=== PATIENT | male | born 1985 | race Caucasian/White ===

== ENCOUNTER 2020-09-28 04:42 | Emergency (ER) | payer SELFPAY ==
[2020-09-28 04:49] VITALS: BP 130/76; PULSE 116; O2SAT 100; BMI 25.8
--- NOTE | 2020-09-28 04:54 | ED.ALCOHOL ---
HPI - Alcohol General Stated Complaint: ETOH INTOXICATION,CALM & COOPERATIVE @ THIS TIME Time Seen by Provider: 09/28/20 04:53 Source: patient Mode of arrival: EMS History of Present Illness HPI narrative: 35-year-old male who is brought in by EMS after he was found sleeping in his car without driving and noted to be intoxicated. He was brought in for further evaluation and on arrival is denying any acute complaints other than requesting to leave. Related Data Allergies Allergy/AdvReac Type Severity Reaction Status Date / Time No Known Allergies Allergy Verified 09/28/20 04:49 Review of Systems Review of Systems: Pertinent positives and negatives as stated in HPI 10 point review of systems is otherwise negative. PMFSH Past Medical History Source: nursing notes reviewed Social History Social History Advance Directives: No Advance Directives Information Provided: No Physical Exam Vital Signs: Vital Signs: VITAL SIGNS: Patient refused GENERAL: Well developed, well nourished, in no acute distress. HEAD: Normocephalic/atraumatic LUNGS: No tachypnea or obvious respiratory distress CARDIOVASCULAR: Regular rate and rhythm ABDOMEN: Soft, non-tender, non-distended with bowel sounds. NEUROLOGIC: Alert and oriented x 3. Stable gait Course Course Course Narrative: 35-year-old male with history and clinical presentation consistent with falling asleep in personal car while intoxicated and is now refusing vital signs and requesting to be discharged. Patient was able to call for a safe ride home and ambulated out of the emergency department without any noted gait instability and received a safe ride home from parents. Discharge Plan Discharge Clinical Impression: Alcohol intoxication Patient Disposition: Home, Self-Care Instructions: Alcohol Intoxication (ED) Additional Instructions: Return to the ER for acute worsening of symptoms. Referrals: Physician,Unknown [Primary Care Provider] - 2 days
== END 2020-09-28 05:03 | disposition home or self-care (01) ==
PROVIDERS: Emergency Provider Student in an Organized Health Care Education/Training Program
DX: F10.920 Alcohol use, unspecified with intoxication, uncomplicated (principal); Y90.9 Presence of alcohol in blood, level not specified
CPT/HCPCS: 99283